=== PATIENT | female | born 1930 | race Caucasian/White ===

== ENCOUNTER 2017-06-01 12:01 | Observation (INO) | payer OTHER ==
[~2017-06-01] VITALS: Ht 154.9 cm; Wt 60.1 kg
[~2017-06-01 12:01] MED LIST: CELEBREX200 MG PO; COZAAR100 MG PO; Calan SR,Covera HS,I PO; Calcium Carbonate,Ca PO; Coumadin dosing per PO; Coumadin,Jantoven PO; Cozaar PO; Feosol PO; HYTRIN2 MG PO; Hytrin PO; LIDODERM 5% P1 PATCH TD; SENOKOT S,PE1 TABLET PO; VERAPAMIL HCL240 MG PO; Vicodin,Lortab 5/500 PO; ZOCOR10 MG PO; Zocor PO
[2017-06-01 12:41] LABS: HEMATOCRIT 38.2 % (36.0-46.0); MCH 31.9 PG (29.0-34.0); MCHC 33.8 G/DL (30.0-36.0); MCV 94.6 FL (83-99); MEAN PLAT.VOLUME 11.2 uM^3 (9.5-12.4); PLATELET COUNT 201 K/uL (156-360); RBC DIS.WIDTH-CV 11.8 % (11.8-14.6); RBC DIS.WIDTH-SD 40.7 % (39-53); RED BLOOD COUNT 4.04 M/uL (3.80-5.20); WHITE BLOOD COUNT 16.2 K/uL (4.1-10.2)
[2017-06-01 12:47] LABS: INTER. NORMALIZED RATIO 1.1; PROTHROMBIN TIME 12.5 SEC (10.2-12.9)
[2017-06-01 12:53] LABS: CHLORIDE 102 mEq/L (99-109); POTASSIUM 4.4 mEq/L (3.7-5.4); SODIUM 137 mEq/L (136-147)
[2017-06-01 12:55] LABS: GLUCOSE 159 mg/dL (70-99)
[2017-06-01 12:56] LABS: ANION GAP 12 MEQ/L (2-14)
[2017-06-01 12:59] LABS: GFR ESTIMATE (CALCULATED) 50 mL/min/
[2017-06-01 13:00] LABS: UREA NITROGEN (BUN) 16 mg/dL (9-23)
[2017-06-01 13:07] LABS: TROP-I INTERPRETATION NEGATIVE; TROPONIN-I < 0.01 ng/mL (0.0-0.30)
[2017-06-01] MEDS ORDERED: LO-DOSE ASPIRIN81 M1 PO (14:10)
[2017-06-01 16:57] VITALS: BP 170/75
[2017-06-01 17:30] VITALS: BP 193/84
[2017-06-01 19:27] LABS: TROP-I INTERPRETATION NEGATIVE; TROPONIN-I 0.02 ng/mL (0.0-0.30)
[2017-06-01 19:30] VITALS: BP 156/72
[2017-06-02 00:38] VITALS: BP 197/82
[2017-06-02 00:48] LABS: ADD MIUA? YES; BILIRUBIN NEGATIVE; BLOOD MODERATE; COLOR YELLOW ((YELLOW)); GLUCOSE (STRIP) NEGATIVE; KETONES NEGATIVE; LEUKOCYTES LARGE; NITRITE NEGATIVE; PROTEIN (STRIP) 100; SPECIFIC GRAVITY 1.016 (1.000-1.030)
[2017-06-02 01:05] LABS: TROP-I INTERPRETATION NEGATIVE; TROPONIN-I 0.02 ng/mL (0.0-0.30)
[2017-06-02 01:13] LABS: EPITHELIAL CELLS 1+ /HPF; MUCUS NONE SEEN /LPF; WHITE BLOOD CELLS 20-30 /HPF (0-5)
[2017-06-02 01:14] LABS: BACTERIA 2+ /HPF; CASTS NONE SEEN /LPF; CRYSTALS NONE SEEN; UCUL ADDED? YES
[2017-06-02 04:45] VITALS: BP 156/66
[2017-06-02 05:33] LABS: HEMATOCRIT 35.2 % (36.0-46.0); MCHC 33.8 G/DL (30.0-36.0); MCV 94.6 FL (83-99); MEAN PLAT.VOLUME 11.8 uM^3 (9.5-12.4); PLATELET COUNT 181 K/uL (156-360); RBC DIS.WIDTH-CV 12.1 % (11.8-14.6); RBC DIS.WIDTH-SD 42.1 % (39-53); RED BLOOD COUNT 3.72 M/uL (3.80-5.20)
[2017-06-02 05:58] LABS: ANION GAP 12 MEQ/L (2-14); CHLORIDE 102 MEQ/L (99-109); GFR ESTIMATE (CALCULATED) > 59 mL/min/; GLUCOSE 131 mg/dL (70-99); SAMPLE HEMOLYSIS CHECK 0; SAMPLE ICTERIC CHECK 0; SAMPLE LIPEMIA CHECK 0; SODIUM 136 MEQ/L (136-147); UREA NITROGEN (BUN) 16 mg/dL (9-23)
[2017-06-02 06:13] LABS: TROP-I INTERPRETATION NEGATIVE; TROPONIN-I 0.03 ng/mL (0.0-0.30)
[2017-06-02 08:15] VITALS: BP 185/78
[2017-06-02 10:10] VITALS: BP 176/73
[2017-06-02 11:18] VITALS: BP 172/76
[2017-06-02 13:37] VITALS: BP 161/72
[2017-06-02] MEDS ORDERED: AMLODIPINE BESYL5 MG PO (14:06)
[2017-06-02] MEDS ORDERED: CEPHALEXIN500 MG PO (14:09)
[2017-06-02] MEDS ORDERED: BACTROBAN CREAM15 GM TP (14:26)
== END 2017-06-02 16:50 | disposition home or self-care (01) ==
LOC: EME 12:01 → EDOF 14:15 → ENRESERV 14:16 → 5WEST 16:49
PROVIDERS: Emergency Medicine; Internal Medicine Cardiovascular Disease; Nurse Practitioner Adult Health; Physician Assistant Medical
DX: R55 Syncope and collapse (principal); S00.81XA Abrasion of other part of head, initial encounter; W18.00XA Striking against unspecified object with subsequent fall, initial encounter; I10 Essential (primary) hypertension; M19.90 Unspecified osteoarthritis, unspecified site; E78.5 Hyperlipidemia, unspecified; Z96.641 Presence of right artificial hip joint; Z79.82 Long term (current) use of aspirin
CPT/HCPCS: 70450; 70551; 71010; 80048; 81003; 84484; 85027; 85610; 85730; 87040; 87086; 93005; 93880; 99281; 99285; G0378; G8978 GP CH; G8979 GP CH; G8980 GP CH; J0360; J0696; J7050